=== PATIENT | male | born 1975 | race Caucasian/White ===

== ENCOUNTER 2016-12-03 12:34 | Emergency (ER) | payer BC ==
[2016-12-03] MEDS ORDERED: ACETAMINOPHEN 325 MG TAB ONE (15:09)
[2016-12-03] MEDS ORDERED: SODIUM CHLORIDE 0.9% 1,000 ML ONE ×2 (15:32→17:23)
[2016-12-03] MEDS ORDERED: DILAUDID 1 MG/ML AMP ONE (15:34)
[2016-12-03] MEDS ORDERED: SODIUM CHLORIDE 0.9% 100 ML IV ONE (15:40)
[2016-12-03] MEDS ORDERED: PIPER/TAZO 3.375 GM PYXIS ONE (15:40)
[2016-12-03] MEDS ORDERED: TDaP 0.5 ML VIAL IM.VACC ONE (15:51)
[2016-12-03] MEDS ORDERED: KETOROLAC 30 MG/ML VIAL ONE (16:40)
[2016-12-03] MEDS ORDERED: LORAZEPAM 2 MG/ML VIAL ONE (17:29)
== END 2016-12-03 18:51 | disposition other institution (70) ==
LOC: ER 12:34
CPT/HCPCS: 36415; 87077; 87186; 90471; 96361; 96365; 96375